=== PATIENT | male | born 1995 | race Caucasian/White ===

== ENCOUNTER 2016-07-27 08:07 | Emergency (ER) | payer OTHER ==
[~2016-07-27] VITALS: Ht 182.9 cm; Wt 108.9 kg
[~2016-07-27 08:07] MED LIST: AUGMENTIN 875-1 EACH PO; AUGMENTIN250 MG/51 PO
--- NOTE | 2016-07-27 08:13 | ED ANIMAL BITE/WOUND CHECK ---
History of Present Illness General Chief Complaint: General Adult Stated Complaint: RABIES SHOT Source: patient, old records Exam Limitations: no limitations Vital Signs & Intake/Output Vital Signs & Intake/Output Vital Signs Date Time Temp Pulse Resp B/P Pulse O2 O2 Flow FiO2 Ox Delivery Rate 07/27 0814 97.0 74 20 127/75 97 Room Air Allergies Coded Allergies: No Known Allergies (07/19/16) Reconcile Medications Amoxicillin/Potassium Clav (Augmentin 250-62.5 MG/5 Ml) 250 MG-62.5 MG/5 ML SUSP.RECON 15 ML PO BID DOG BITE Triage Nurses Notes Reviewed? yes Onset: Abrupt Duration: week(s): (1), constant Timing: recent history Injury Environment: home No Modifying Factors: none Associated Symptoms: denies HPI: 21-year-old male presents for his third rabies vaccination after sustaining laceration to his left wrist 1 week ago. The patient states he is on his last day of antibiotics. He states that he was told during his last visit that it may be superficially infected however states since then the redness has resolved. He denies any discharge bleeding or pain no difficulty with range of motion of his wrist. He denies any fevers or chills he is otherwise without any complaints today. (ISA WRIGHT) Past History Travel History Traveled to [place] past 21 day No Medical History Any Pertinent Medical History? see below for history Neurological: NONE EENT: NONE Cardiovascular: NONE Respiratory: asthma Gastrointestinal: NONE Hepatic: NONE Renal: NONE Musculoskeletal: NONE Psychiatric: NONE Endocrine: NONE Tetanus Vaccine: 07/20/16 Surgical History Surgical History: none Psychosocial History What is your primary language Khmer Family History Hx Contributory? No (ISA WRIGHT) Review of Systems Review of Systems Constitutional: Reports: see HPI. All Other Systems: Reviewed and Negative Comments Review of systems: See HPI, All other systems negative. Constitutional, no chills no fever, no malaise no weight loss HEENT: No visual changes no sore throat no congestion, no ear pain Cardiovascular: No chest pain , no palpitation , no orthopnea no ankle swelling Skin, no jaundice no rashes, no change in skin Respiratory: No dyspnea no cough no sputum no hemoptysis GI: No nausea no vomiting, no diarrhea, no bloating/constipation : No dysuria No hematuria, no frequency, no discharge Muscle skeletal: No joint pain, no joint swelling, no back pain, no neck pain, Neurologic: No numbness no confusion, no headache Psych: No stress no anxiety no depression,. Heme/endocrine: No bruising no bleeding no polyuria no polydipsia Immunology: No lymphadenopathy, no splenectomy (ISA WRIGHT) Physical Exam Physical Exam General Appearance: well developed/nourished, no apparent distress, alert, awake , comfortable Comments: Well-developed well-nourished patient in no apparent distress. HEENT: Atraumatic, extraocular motion intact Neck: Supple, FROM Back: FROM Cardiovascular: Regular rate and rhythms Respiratory: No respiratory distress. Patient speaking in full complete sentences Shoulder: Atraumatic/Stable. FROM . Elbow: Atraumatic/stable. FROM. No laxity Upper arm/Forearm: Atraumatic. Nontender. No edema, 5 out of 5 [employer] strength noted to bilateral upper extremities Hand/Wrist: stable. Healing laceration noted to the volar aspect of the distal left wrist, there is no surrounding erythema or induration or fluctuance nontender to palpation no streaking erythema up the arm FROM Pulses: Normal/equal radial pulses bilaterally. Brisk cap refill Neuro: Alert and oriented x3 Skin: Warm & dry;No appreciable rash on exposed skin Psych: Mood affect normal, normal memory normal judgment. (ISA WRIGHT) Progress Differential Diagnosis: abscess, cellulitis, joint infection, tenosysnovitis Plan of Care: Current Medications Sig/Oliver Start time Last Medication Dose Stop Time Status Admin Rabies Vaccine 1 SYR ONCE ONE 07/27 0815 UNVr (Rabies (Vaccine) 07/27 0816 Inj (1ML)) Wound appears clean there is no discharge no active bleeding rabies vaccination was administered patient will follow up as scheduled for his final vaccination. He will return anytime sooner with any concerns he feels comfortable plan (ISA WRIGHT) Departure Departure Disposition: HOME OR SELF CARE Condition: Stable Clinical Impression Primary Impression: Rabies, need for prophylactic vaccination against Referrals: PATIENT HAS NO PRIMARY CARE DR (PCP/Family) Additional Instructions: Follow-up as scheduled for your final rabies prophylaxis as scheduled Departure Forms: Customer Survey General Discharge Information (ISA WRIGHT) PA/SUCCESSFACTORS CONSULTANT Co-Sign Statement Statement: ED Attending supervision documentation- [] I saw and evaluated the patient. I have also reviewed all the pertinent lab results and diagnostic results. I agree with the findings and the plan of care as documented in the PA's/SUCCESSFACTORS CONSULTANT's documentation. [X] I have reviewed the ED Record and agree with the PA's/SUCCESSFACTORS CONSULTANT's documentation. [] Additions or exceptions (if any) to the PAs/SUCCESSFACTORS CONSULTANT's note and plan are summarized below: [] (SILVANO HOLGUIN,MARIEL)
[2016-07-27 08:14] VITALS: BP 127/75
== END 2016-07-27 08:26 ==
LOC: ERH 08:07
DX: Z23 Encounter for immunization (principal)
CPT/HCPCS: 90471; 99281

== ENCOUNTER 2016-08-03 07:58 | Emergency (ER) | payer OTHER ==
[~2016-08-03] VITALS: Ht 182.9 cm; Wt 108.9 kg
[2016-08-03 08:02] VITALS: BP 145/72
--- NOTE | 2016-08-03 08:08 | ED ANIMAL BITE/WOUND CHECK ---
History of Present Illness General Chief Complaint: General Adult Stated Complaint: REQ LAST RABIES SHOT Source: patient, old records Exam Limitations: no limitations Vital Signs & Intake/Output Vital Signs & Intake/Output Vital Signs Date Time Temp Pulse Resp B/P Pulse O2 O2 Flow FiO2 Ox Delivery Rate 08/03 0802 97.5 72 20 145/72 97 Room Air Allergies Coded Allergies: No Known Allergies (07/19/16) Triage Note: PT HERE FOR LAST RABIES INJ Triage Nurses Notes Reviewed? yes Onset: Abrupt Duration: week(s): (2) Injury Environment: home Is Injury an Animal Bite? Yes Animal Type: dog, family pet HPI: 21-year-old male who returns for his last rabies vaccine status was getting bit by his brothers and vaccinated dog. He is status post a course of antibiotics and states that the left wrist wound is healing well. Past History Travel History Traveled to [place] past 21 day No Medical History Any Pertinent Medical History? see below for history Neurological: NONE EENT: NONE Cardiovascular: NONE Respiratory: asthma Gastrointestinal: NONE Hepatic: NONE Renal: NONE Musculoskeletal: NONE Psychiatric: NONE Endocrine: NONE Tetanus Vaccine: 07/20/16 Surgical History Surgical History: none Psychosocial History What is your primary language Hebrew Tobacco Use: Never used ETOH Use: denies use Illicit Drug Use: denies illicit drug use Family History Hx Contributory? No Review of Systems Review of Systems Constitutional: Denies: chills, fever. EENTM: Reports: no symptoms. Respiratory: Reports: no symptoms. Cardiovascular: Denies: chest pain. GI: Reports: no symptoms. Genitourinary: Reports: no symptoms. Musculoskeletal: Reports: joint pain. Skin: Reports: no symptoms. Neurological/Psychological: Reports: no symptoms. Hematologic/Endocrine: Denies: bruising, bleeding. Immunologic/Allergic: Denies: splenectomy. All Other Systems: Reviewed and Negative Physical Exam Physical Exam General Appearance: well developed/nourished, alert, awake, mild distress Head: atraumatic Eyes: Bilateral: PERRL, EOMI. Ears, Nose, Throat: hearing grossly normal Neck: full range of motion Peripheral Pulses: 2+ radial (R), 2+ radial (L) Gastrointestinal: soft, non-tender Back: normal inspection Extremities: normal range of motion Neurologic/Psych: awake, alert, oriented x 3, normal mood/affect Skin: intact, normal color, warm/dry Lymphatic: no anterior cervical karlee Progress Differential Diagnosis: RABIES VACCINATION Plan of Care: Current Medications Sig/Oliver Start time Last Medication Dose Stop Time Status Admin Rabies Vaccine 1 SYR ONCE ONE 08/03 814 AC (Rabies (Vaccine) 08/03 815 Inj (1ML)) Departure Departure Time of Disposition: 807 Disposition: HOME OR SELF CARE Condition: Stable Clinical Impression Primary Impression: Encounter for repeat administration of rabies vaccination Referrals: UNKNOWN (PCP/Family) Departure Forms: Customer Survey General Discharge Information Prescriptions: Current Visit Scripts No Known Home Medications
== END 2016-08-03 08:13 ==
LOC: ERH 07:58
DX: Z23 Encounter for immunization (principal)
CPT/HCPCS: 90471; 99281